=== PATIENT | female | born 1960 | race Two or more races ===

== ENCOUNTER 2019-09-20 19:05 | Emergency (ER) | payer OTHER ==
[~2019-09-20] VITALS: Ht 157.5 cm; Wt 68.0 kg
[2019-09-20 19:17] VITALS: Ht 157.5 cm; Wt 68.0 kg
[2019-09-20 19:50] VITALS: BP 170/58
== END 2019-09-20 19:50 | disposition home or self-care (01) ==
LOC: ED 19:05
DX: I88.9 Nonspecific lymphadenitis, unspecified (principal)
CPT/HCPCS: J0696